=== PATIENT | male | born 1975 | race Caucasian/White ===

== ENCOUNTER 2019-09-13 16:12 | Emergency (ER) | END 2019-09-13 16:48 | disposition home or self-care (01) | DX: G51.0 Bell's palsy (principal) ==

== ENCOUNTER 2021-03-09 10:08 | Emergency (ER) | payer BC, OTHER ==
[~2021-03-09] VITALS: Ht 190.5 cm; Wt 115.7 kg
--- NOTE | 2021-03-09 10:22 | NUR ---
Dr Gonzalez at the bedside for MSE.
--- NOTE | 2021-03-09 10:37 | NUR ---
Patient discharged to home in stable condition. Written and verbal after care instructions given. Patient verbalizes understanding of instructions. Stressed follow up or return to ER for worsening s/s.
[2021-03-09 10:38] VITALS: BP 138/89
== END 2021-03-09 10:38 | disposition home or self-care (01) ==
LOC: ER 10:08
DX: G51.0 Bell's palsy (principal)
CPT/HCPCS: A4663